=== PATIENT | female | born 1945 | race Caucasian/White ===

== ENCOUNTER 2019-04-07 12:14 | Outpatient (RCR) | payer MEDICARE, OTHER, SELFPAY | END 2019-05-03 00:01 | LOC: SPT 12:14 | PROVIDERS: Family Provider Family Medicine; Visit Provider Anesthesiology Pain Medicine | DX: M47.812 Spondylosis without myelopathy or radiculopathy, cervical region (principal); M43.12 Spondylolisthesis, cervical region; M79.12 Myalgia of auxiliary muscles, head and neck; M48.02 Spinal stenosis, cervical region; R51 Headache; M54.2 Cervicalgia | CPT/HCPCS: 97110 ×6; 97163 ==

== ENCOUNTER 2019-05-04 06:00 | Outpatient (RCR) | payer MEDICARE, OTHER, SELFPAY | END 2019-06-03 23:59 | disposition home or self-care (01) | LOC: SPT 06:00 | PROVIDERS: Family Provider Family Medicine; PCP Family Medicine; Visit Provider Anesthesiology Pain Medicine | DX: M47.812 Spondylosis without myelopathy or radiculopathy, cervical region (principal) | CPT/HCPCS: 97110 ==

== ENCOUNTER → 2020-04-02 14:47 | Outpatient (BNVA) | payer MEDICARE, OTHER, SELFPAY | PROVIDERS: Family Provider Family Medicine; PCP Family Medicine; Visit Provider Internal Medicine | DX: Z01.818 Encounter for other preprocedural examination (principal); R10.11 Right upper quadrant pain | CPT/HCPCS: 87635 ==

== ENCOUNTER 2020-04-06 08:38 | Day surgery (SDC) | payer MEDICARE, OTHER, SELFPAY ==
[2020-04-03 12:55] VITALS: BMI 26.7
[2020-04-06 09:16] VITALS: BP 111/83; PULSE 79; RESP 16; TEMP 37.4; O2SAT 95
[2020-04-06] MEDS: sodium chloride 0.9% 1,000 ML 30 ML IV (09:20)
--- NOTE | 2020-04-06 09:50 | W.PM.OPSUD ---
Surgery/Procedure H&P Update DATE OF PROCEDURE: April 06, 2020 DATE H&P PERFORMED: 04/02/20 PREOP DIAGNOSIS: ruq pain PLANNED PROCEDURE: Operation Date: 04/06/20 10:00 Proposed Procedures p EGD 01074 R10.11(Not Applicable) - Mark Pulido MD
--- NOTE | 2020-04-06 10:17 | ANES.PREANE2 ---
Pre-Anesthetic Assessment Pre-Anesthetic Assessment: Height/Weight: Height 1.7 m Weight 77.564 kg Temp Pulse Resp BP Pulse Ox 99.3 F 79 16 111/83 95 04/06/20 09:16 04/06/20 09:16 04/06/20 09:16 04/06/20 09:16 04/06/20 09:16 Preop Diagnosis: ruq pain Proposed Procedure: Operation Date: 04/06/20 10:00 Proposed Procedures p EGD 50824 R10.11(Not Applicable) - Mark Pulido MD Was Beta Phani taken within 24 hours: N/A Last intake: Intake Last Liquid Date 04/05/20 Last Liquid Time 23:00 Last Solid Date 04/06/20 Last Solid Time 19:00 Social: Social History: No alcohol and No tobacco Exam: Pre-Anes Outpt Exam: alert, oriented x 3, clear to auscultation bilaterally and regular rate & rhythm Airway: Submandibular: WNL Cervical ROM: Other (Very limited extension--h/o spinal stenosis) MP: 2 Pulmonary: Pulmonary: None reported CV/HEM: CV/HEM: None reported : : None reported Hepatic: Hepatic: None reported GI: GI: GERD Metabolic: Metabolic: None reported Musc/skel: Musc/skel: None reported Neuropsych: Neuropsych: None reported Anesthetic Plan: ASA status: 3 Anesthesia: MAC Risk of > 500 ml blood loss (7ml/kg in children): No Meds/Allergies Current Medications: Current Medications Generic Name Dose Route Start Last Admin Trade Name Freq PRN Reason Stop Dose Admin Sodium Chloride 1,000 mls @ 30 ml s/hr 04/06/20 09:00 04/06/20 09:20 Sodium Chloride 0.9% IV 04/07/20 08:59 30 mls/hr .Q24H DANNY Administration PFSH Anesthesia PFSH: Family History (Updated 04/02/20 @ 13:11 by YENIFER Benson) Mother Diabetes Cancer Brother Diabetes Grandmother Cancer Social History (Updated 04/02/20 @ 13:12 by YENIFER Benson) Smoking and tobacco status: never smoked Alcohol intake: never Marital status: Number of children: 2 service: No History of recent travel: No Current gender identity: Female Data Anesthesia Cardiac Studies: No Data to Display
[2020-04-06 10:57] VITALS: BP 114/44; PULSE 60; RESP 16; TEMP 36.2
--- NOTE | 2020-04-06 11:49 | ANE.PACU2 ---
Inpatient post-anesthesia follow up: Airway intact: Yes Vital signs: Temperature 97.2 F Pulse Rate 60 Respiratory Rate 16 Blood Pressure 114/44 Pulse Oximetry 95 Oxygen Delivery Me thod Room Air Oxygen Flow Rate Fraction of Inspir ed Oxygen Hydration adequate: Yes Nausea and vomiting: No Pain level: 1 Mental status: Baseline
[2020-04-09 06:43] LABS: H. Pylori / CLO Test Negative
== END 2020-04-06 11:30 | disposition home or self-care (01) ==
PROVIDERS: PCP Family Medicine; Visit Provider Internal Medicine
PROC: 0DJ08ZZ Inspection of Upper Intestinal Tract, Via Natural or Artificial Opening Endoscopic (ICD-10-PCS; CPT 43235; principal; 2020-04-06 10:00)
DX: R10.11 Right upper quadrant pain (principal); K29.70 Gastritis, unspecified, without bleeding; K21.9 Gastro-esophageal reflux disease without esophagitis; Z83.3 Family history of diabetes mellitus; Z79.82 Long term (current) use of aspirin
CPT/HCPCS: 12345; 43239; 87077; J2704; J7030

== ENCOUNTER → 2020-09-24 08:59 | Outpatient (BNVA) | payer MEDICARE, SELFPAY | PROVIDERS: PCP Family Medicine; Visit Provider Podiatrist Foot & Ankle Surgery | DX: M79.671 Pain in right foot (principal); M79.672 Pain in left foot; M21.612 Bunion of left foot; M76.71 Peroneal tendinitis, right leg; L60.3 Nail dystrophy | CPT/HCPCS: 73610; 73630 ==

== ENCOUNTER 2021-03-12 07:24 | Outpatient (RCR) | payer MEDICARE, SELFPAY | END 2021-04-02 23:59 | disposition home or self-care (01) | LOC: SPT 07:24 | PROVIDERS: PCP Family Medicine; Referring Provider Student in an Organized Health Care Education/Training Program; Visit Provider Student in an Organized Health Care Education/Training Program | DX: Z96.651 Presence of right artificial knee joint (principal) | CPT/HCPCS: 97110; 97150; 97162; G0283 ==

== ENCOUNTER 2021-04-03 06:00 | Outpatient (RCR) | payer MEDICARE, SELFPAY | END 2021-05-03 23:59 | disposition home or self-care (01) | LOC: SPT 06:00 | PROVIDERS: PCP Family Medicine; Referring Provider Student in an Organized Health Care Education/Training Program; Visit Provider Student in an Organized Health Care Education/Training Program | DX: Z96.651 Presence of right artificial knee joint (principal) | CPT/HCPCS: 97110 ==

== ENCOUNTER 2021-05-04 06:00 | Outpatient (RCR) | payer MEDICARE, SELFPAY | END 2021-06-03 23:59 | disposition home or self-care (01) | LOC: SPT 06:00 | PROVIDERS: PCP Family Medicine; Referring Provider Student in an Organized Health Care Education/Training Program; Visit Provider Student in an Organized Health Care Education/Training Program | DX: Z47.1 Aftercare following joint replacement surgery (principal); Z96.651 Presence of right artificial knee joint | CPT/HCPCS: 97110 ==

== ENCOUNTER → 2021-10-29 07:46 | Outpatient (BNVA) | payer MEDICARE, SELFPAY | PROVIDERS: PCP Family Medicine; Visit Provider Podiatrist Foot & Ankle Surgery | DX: M21.612 Bunion of left foot (principal); M76.71 Peroneal tendinitis, right leg; L60.3 Nail dystrophy | CPT/HCPCS: 99213 ==

== ENCOUNTER 2022-02-05 14:16 | Outpatient (CLI) | payer MEDICARE, SELFPAY ==
--- NOTE | 2022-02-05 14:20 | XR_ITS ---
WS: [id number] DEXA (DUAL ENERGY X-RAY ABSORPTIOMETRY) Bone mineral density was performed using a [employer] machine. HISTORY: POSTMENOPAUSAL COMPARISON: None available. Lumbar spine BMD (L1-L4): 1.253 g/cm2 T score: 0.6 Z score: 1.8 Total hip BMD: Left: 0.990 g/cm2. T score: -0.1 Z score: 1.1 Right: 0.887 g/cm2. T score: -1.0 Z score: 0.3 10 year probability of a major osteoporotic fracture is 9.4%. XR/XR DEXA axial skeleton* [id number] IMPRESSION: NORMAL BONE MINERAL DENSITY based upon the WHO classification for females.
== END 2022-02-05 14:17 | disposition home or self-care (01) ==
LOC: RAD 14:17
PROVIDERS: PCP Family Medicine; Visit Provider Nurse Practitioner Family
DX: Z78.0 Asymptomatic menopausal state (principal)
CPT/HCPCS: 77080

== ENCOUNTER → 2022-03-04 10:46 | Outpatient (BNVA) | payer MEDICARE, SELFPAY | PROVIDERS: PCP Family Medicine; Visit Provider Podiatrist Foot & Ankle Surgery | DX: M76.71 Peroneal tendinitis, right leg (principal); L60.3 Nail dystrophy | CPT/HCPCS: 99213 ==

== ENCOUNTER → 2022-07-03 08:55 | Outpatient (BNVA) | payer MEDICARE, SELFPAY | PROVIDERS: PCP Family Medicine; Visit Provider Podiatrist Foot & Ankle Surgery | DX: I73.9 Peripheral vascular disease, unspecified (principal); L60.3 Nail dystrophy | CPT/HCPCS: 11721 ==

== ENCOUNTER 2022-09-01 12:42 | Outpatient (CLI) | payer MEDICARE, SELFPAY ==
--- NOTE | 2022-09-01 12:57 | MR_ITS ---
WS: [id number] MRI CERVICAL SPINE NONCONTRAST TECHNIQUE: Sagittal T1, T2 and STIR imaging. Axial T2, gradient, and fiesta imaging. CLINICAL INFORMATION: MUSCULOSKELETAL DISORDER OF NECK COMPARISON: None. FINDINGS: Straightening of the normal cervical lordosis. Disc space narrowing worse at C5-C6 and C6-C7. Cord si gnal is normal. C2-C3: Mild facet arthropathy. No significant disc bulging. Spinal canal and foramen are patent. C3-C4: Disc osteophytic ridging. Slight contact of the cervical cord. Advanced RIGHT facet arthropath y. Moderate RIGHT bony foraminal narrowing. LEFT foramen is patent. C4-C5: Disc osteophyte complex with endplate ridging. Mild central canal stenosis. Slight contact of the cervical cord. Advanced RIGHT facet arthropathy. Moderate LEFT facet arthropathy. Severe RIGHT [place] foraminal narrowing. Mild LEFT bony foraminal narrowing. C5-C6: Disc osteophyte complex with endplate ridging with mild to moderate central canal stenosis. Sl ight contact of the RIGHT ventral cervical cord. Moderate to severe bilateral bony foraminal narrowin g. Mild facet arthropathy. C6-C7: Disc osteophyte complex with endplate ridging. Mild central canal stenosis. Moderate RIGHT and mild LEFT foraminal narrowing. Uncovertebral joint hypertrophy. C7-T1: Mild LEFT and no significant RIGHT foraminal narrowing. Spinal canal is patent. Visualized brain stem structures: Normal. Prevertebral soft tissues: Normal. MR/MR cervical spin wo con* [id number] IMPRESSION: 1. Straightening of the normal cervical lordosis. Cord signal is normal. 2. Mild central canal stenosis C4-C5 and C6-C7. Mild to moderate central canal stenosis C5-C6 with slight indentation on cervical cord. 3. Moderate RIGHT C3-C4, moderate to severe RIGHT C4-C5 and moderate to severe bilateral C5-C6 bony foraminal narrowing. Moderate RIGHT C6-C7 bony foraminal narrowing. 4. Advanced facet arthropathy RIGHT C3-C4, RIGHT C4-C5, and moderate bilateral C5-C6.
== END 2022-09-01 12:43 | disposition home or self-care (01) ==
PROVIDERS: PCP Family Medicine; Visit Provider Surgery
DX: M53.82 Other specified dorsopathies, cervical region (principal); M48.02 Spinal stenosis, cervical region; M12.88 Other specific arthropathies, not elsewhere classified, other specified site
CPT/HCPCS: 72141

== ENCOUNTER → 2022-10-27 07:25 | Outpatient (BNVA) | payer MEDICARE, SELFPAY | PROVIDERS: PCP Family Medicine; Visit Provider Podiatrist Foot & Ankle Surgery | DX: I73.9 Peripheral vascular disease, unspecified (principal); L60.8 Other nail disorders; L60.3 Nail dystrophy | CPT/HCPCS: 11721 ==

== ENCOUNTER → 2023-01-26 07:29 | Outpatient (BNVA) | payer MEDICARE, SELFPAY | PROVIDERS: PCP Family Medicine; Visit Provider Podiatrist Foot & Ankle Surgery | DX: L60.8 Other nail disorders (principal); I73.9 Peripheral vascular disease, unspecified; L60.3 Nail dystrophy | CPT/HCPCS: 11721 ==

== ENCOUNTER → 2023-02-11 07:59 | Outpatient (BNVA) | payer MEDICARE, SELFPAY | PROVIDERS: PCP Family Medicine; Referring Provider Family Medicine; Visit Provider Nurse Practitioner Family | DX: L57.8 Other skin changes due to chronic exposure to nonionizing radiation (principal); L82.1 Other seborrheic keratosis; D22.5 Melanocytic nevi of trunk; Z08 Encounter for follow-up examination after completed treatment for malignant neoplasm; Z85.828 Personal history of other malignant neoplasm of skin; L57.0 Actinic keratosis | CPT/HCPCS: 17000; 99203 ==

== ENCOUNTER → 2023-05-05 07:42 | Outpatient (BNVA) | payer MEDICARE, SELFPAY | PROVIDERS: PCP Family Medicine; Visit Provider Podiatrist Foot & Ankle Surgery | DX: I73.9 Peripheral vascular disease, unspecified (principal); L60.3 Nail dystrophy | CPT/HCPCS: 11721 ==

== ENCOUNTER 2023-06-07 14:30 | Emergency (ER) | payer MEDICARE, SELFPAY ==
[2023-06-07 14:58] VITALS: BP 131/74; PULSE 66; RESP 16; TEMP 36.8; O2SAT 92; BMI 28.2
--- NOTE | 2023-06-07 16:22 | ED_ITS ---
HPI - Allergic Reaction General: Chief complaint: Allergic Reaction Stated complaint: swollen lips and tongue Time Seen by Provider: 06/07/23 16:22 History of Present Illness: HPI narrative: 77-year-old female comes in today with c omplaints of swelling of the lips for the last 3 days. Patient appears nontoxic. Patient appears in no acute distress. Patient cannot recall any changes in diet or exposure to cold. Patient reports no recurrent use of da or citrus. Patient does wear a partial denture plate. Review of Systems General: Reports: 10 or more systems reviewed and unremarkable except in HPI and below PFSH ED PFSH: Family History Mother Diabetes Cancer Brother Diabetes Grandmother Cancer Social History Smoking and tobacco/nicotine status: never used tobacco/nicotine Alcohol intake: never Substance/Drug Use: never Marital status: Number of children: 2 service: No Current gender identity: Female Physical Exam Const: COMMON NORMALS: alert HENMT: COMMON NORMALS: normocephalic HEAD & SCALP: normocephalic MOUTH: Normal oral and palatal mucosa present OTHER: Mild chafing and swelling of the lips. No redness. Oral mucosa is normal. Neck/C-Spine: COMMON NORMALS: full ROM Resp: COMMON NORMALS: normal respiratory effort and clear to auscultation bilaterally AUSCULTATION: clear to auscultation bilaterally Cardio: COMMON NORMALS: regular rate and regular rhythm RATE: regular rate RHYTHM: regular rhythm GI: COMMON NORMALS: non-tender Extremity: COMMON NORMALS: normal to inspection Neuro: SENSORIUM/ORIENTATION: Yes alert Skin: COMMON NORMALS: turgor normal NARRATIVE SKIN EXAM: Dry cracked skin of the oral lips. GENERAL SKIN EXAM: turgor normal Course Vital Signs: Vital signs: Vital Signs Temperature 98.2 F 06/07/23 14:58 Pulse Rate 66 06/07/23 14:58 Respiratory Rate 16 06/07/23 14:58 Blood Pressure 131/74 06/07/23 14:58 Pulse Oximetry 92 06/07/23 14:58 Oxygen Delivery Me thod Room Air 06/07/23 14:58 MDM - Allergic Reaction Medical Decision Making 77-year-old female comes in today with swelling of the lips. On exam patient has some mild swelling with chafing of the lips. Respirations are even lungs are clear to auscultation. Tongue appears normal. Vital signs are normal. Differential diagnosis includes allergic reaction, stomatitis, chapped lips, angioedema, contact dermatitis. Patient probably has a mild contact dermatitis due to recent lip balm use due to chapped lips. Recommend using Vaseline to the lips for moisturizer. Will cover with some steroids due to the swelling. No signs of respiratory obstruction or severe illnesses noted. Patient and family both reported understanding of care plan and need for follow-up or return. No radiology studies performed this visit Discharge Plan Discharge Patient Disposition: Home Clinical Impression: Lip swelling Contact dermatitis Qualifiers: Contact dermatitis type: allergic Contact dermatitis trigger: unspecified trigger Qualified Code(s): L23.9 - Allergic contact dermatitis, unspecified cause Condition: Stable Prescriptions: New prednisone 20 mg tablet 20 mg PO DAILY 7 Days Qty: 7 0RF No Action diazepam 2 mg tablet 2 mg PO BID PRN (Reason: Anxiety) aspirin 81 mg tablet,delayed release (DR/EC) 81 mg PO DAILY Premarin 0.625 mg/gram cream 0.625 mg vaginal .every thursday Rx Instructions: off 5 days; repeat cycle loratadine [Allergy Relief (loratadine)] 10 mg tablet 10 mg PO DAILY nitroglycerin [Nitrostat] 0.4 mg tablet, sublingual 0.4 mg sublingual Q5M PRN (Reason: Chest Pain) Rx Instructions: do not exceed 3 doses per episode pantoprazole 40 mg tablet,delayed release (DR/EC) 40 mg PO DAILY Qty: 90 8RF Discharge Orders: Discharge ED (Routine); Ordered 06/07/23 Ordered By: Virgil Candelario Referrals: Addison Laird MD [Primary Care Provider] - Discharge Diet: Usual diet Discharge Activity: Increase activity as tolerated Patient Instructions: Contact Dermatitis (ED) Activity Restrictions/Additional Instructions: Use Vaseline to the lips for moisturizing. Take steroids as directed. Follow- up with primary care for further instructions. Return to ED for worsening symptoms such as high fever, inability to hold fluids down, or new concerns. Coding Level of Care Code ED Packing Room Worker for Viviana Byrnes
[2023-06-07] MEDS: dexamethasone 10 mg/mL INJ IM (16:42)
== END 2023-06-07 16:49 | disposition home or self-care (01) ==
PROVIDERS: Emergency Provider Nurse Practitioner Family; PCP Family Medicine
DX: L23.9 Allergic contact dermatitis, unspecified cause (principal); M79.89 Other specified soft tissue disorders; Z79.82 Long term (current) use of aspirin
CPT/HCPCS: 96372; 99284; J1100

== ENCOUNTER → 2023-08-04 07:33 | Outpatient (BNVA) | payer MEDICARE, SELFPAY | PROVIDERS: PCP Family Medicine; Visit Provider Podiatrist Foot & Ankle Surgery | DX: I73.9 Peripheral vascular disease, unspecified (principal); L60.3 Nail dystrophy | CPT/HCPCS: 11721 ==

== ENCOUNTER → 2023-11-03 07:32 | Outpatient (BNVA) | payer MEDICARE, SELFPAY | PROVIDERS: PCP Family Medicine; Visit Provider Podiatrist Foot & Ankle Surgery | DX: I73.9 Peripheral vascular disease, unspecified (principal); L60.3 Nail dystrophy | CPT/HCPCS: 11721 ==

== ENCOUNTER → 2024-02-03 12:08 | Outpatient (BNVA) | payer MEDICARE, SELFPAY | PROVIDERS: PCP Family Medicine; Visit Provider Podiatrist Foot & Ankle Surgery | DX: I73.9 Peripheral vascular disease, unspecified (principal); L60.3 Nail dystrophy | CPT/HCPCS: 11721 ==

== ENCOUNTER → 2024-04-13 10:17 | Outpatient (BNVA) | payer MEDICARE, SELFPAY | PROVIDERS: PCP Family Medicine; Visit Provider Nurse Practitioner Family | DX: L57.8 Other skin changes due to chronic exposure to nonionizing radiation (principal); L82.1 Other seborrheic keratosis; D22.5 Melanocytic nevi of trunk; Z08 Encounter for follow-up examination after completed treatment for malignant neoplasm; Z85.828 Personal history of other malignant neoplasm of skin; L82.0 Inflamed seborrheic keratosis | CPT/HCPCS: 17110; 99213 ==

== ENCOUNTER → 2024-05-11 13:17 | Outpatient (BNVA) | payer MEDICARE, SELFPAY | PROVIDERS: PCP Family Medicine; Visit Provider Podiatrist Foot & Ankle Surgery | DX: I73.9 Peripheral vascular disease, unspecified (principal); L60.3 Nail dystrophy | CPT/HCPCS: 11721 ==

== ENCOUNTER → 2024-08-10 12:30 | Outpatient (BNVA) | payer MEDICARE, SELFPAY | PROVIDERS: PCP Family Medicine; Visit Provider Podiatrist Foot & Ankle Surgery | DX: I73.9 Peripheral vascular disease, unspecified (principal); L60.3 Nail dystrophy | CPT/HCPCS: 11721 ==

== ENCOUNTER → 2024-10-12 12:52 | Outpatient (BNVA) | payer MEDICARE, SELFPAY | PROVIDERS: PCP Family Medicine; Visit Provider Podiatrist Foot & Ankle Surgery | DX: I73.9 Peripheral vascular disease, unspecified (principal); L60.3 Nail dystrophy | CPT/HCPCS: 11721 ==

== ENCOUNTER → 2024-12-20 13:33 | Outpatient (BNVA) | payer MEDICARE, SELFPAY | PROVIDERS: PCP Family Medicine; Visit Provider Podiatrist Foot & Ankle Surgery | DX: I73.9 Peripheral vascular disease, unspecified (principal); L60.3 Nail dystrophy; L60.8 Other nail disorders | CPT/HCPCS: 11721 ==

== ENCOUNTER → 2025-01-23 10:23 | Outpatient (BNVA) | payer MEDICARE, SELFPAY | PROVIDERS: PCP Family Medicine; Visit Provider Nurse Practitioner Family | DX: L82.1 Other seborrheic keratosis (principal); L57.8 Other skin changes due to chronic exposure to nonionizing radiation; L81.4 Other melanin hyperpigmentation; Z08 Encounter for follow-up examination after completed treatment for malignant neoplasm; Z85.828 Personal history of other malignant neoplasm of skin | CPT/HCPCS: 99213 ==

== ENCOUNTER → 2025-03-07 12:59 | Outpatient (BNVA) | payer MEDICARE, SELFPAY | PROVIDERS: PCP Family Medicine; Visit Provider Podiatrist Foot & Ankle Surgery | DX: I73.9 Peripheral vascular disease, unspecified (principal); L60.3 Nail dystrophy; L60.8 Other nail disorders | CPT/HCPCS: 11721 ==

== ENCOUNTER → 2025-04-12 09:09 | Outpatient (BNVA) | payer MEDICARE, SELFPAY | PROVIDERS: PCP Family Medicine; Visit Provider Dermatology | DX: L72.8 Other follicular cysts of the skin and subcutaneous tissue (principal); L82.1 Other seborrheic keratosis; D18.01 Hemangioma of skin and subcutaneous tissue; D23.72 Other benign neoplasm of skin of left lower limb, including hip; L57.8 Other skin changes due to chronic exposure to nonionizing radiation; L56.8 Other specified acute skin changes due to ultraviolet radiation | CPT/HCPCS: 17000; 99213 ==